=== PATIENT | female | born 1995 | race Caucasian/White ===

== ENCOUNTER 2020-01-02 12:49 | Observation (INO) | payer BC ==
[2020-01-02 13:19] LABS: Appearance CLOUDY (CLEAR); Bacteria MANY /HPF (NEGATIVE); Bilirubin NEGATIVE (NEGATIVE); Blood NEGATIVE Ery/ul (0-5); Epithelial Cells PACKED /HPF (FEW); Glucose NEGATIVE (NEGATIVE); Ketones NEGATIVE (NEGATIVE); Leukocyte Esterase LARGE (NEGATIVE); Mucus SLIGHT /HPF (NEGATIVE); Nitrite NEGATIVE (NEGATIVE); Protein,Urine Dip 30 (Negative); Specific Gravity 1.016 (1.005-1.025); Urobilinogen 2 mg/dL (0-1)
[2020-01-02] MEDS ORDERED: Lactated Ringers 1,000 ML IV ONE (14:21)
[2020-01-02] MEDS ORDERED: ROCEPHIN 1 Gm-D5w 50 ml Bag** 1 G/50 ML IVPB IV SCH (14:30)
[2020-01-02 14:41] LABS: Absolute Neutrophil Ct (ANC) 3.65 (1.4-6.9); BASOPHIL % 0.4 % (0.0-0.4); Basophil (Absolute #) 0.02 (0-0.4); Eosinophil % 0.9 % (0.00-5.0); Eosinophil (Absolute #) 0.05 (0-0.5); Hematocrit 33.9 % (35-47); Hemoglobin 10.8 gm/dl (12.0-16.0); Lymphocyte (Absolute #) 1.43 (1.0-4.6); Lymphocytes % 26.1 % (24.0-44.0); Mean Cell Volume 89.9 fl (78-100); Mean Corpuscular Hemoglobin 28.6 pg (26-32); Mean Corpuscular Hgb Concent. 31.9 g/dl (32-36); Mean Platelet Volume 12.3 fl (7.5-11.0); Monocyte (Absolute #) 0.33 (0.0-1.3); Neutrophil % 66.6 % (36.0-66.0); Platelet Count 186 K/mm3 (150-450); Red Blood Count 3.77 M/mm3 (4.1-5.4); Red Cell Distribution Width 15.3 % (11.5-14.0); White Blood Count 5.5 K/mm3 (4.0-10.5)
[2020-01-02 15:03] LABS: ALBUMIN 3.7 g/dL (3.5-5.0); ALKALINE PHOSPHATASE 169 U/L (38-126); ANION GAP 10.6 MEQ/L (5-15); BLOOD UREA NITROGEN 5 mg/dL (7-17); CHLORIDE 105 mmol/L (98-107); Calcium 9.6 mg/dL (8.4-10.2); Carbon Dioxide 23 mmol/L (22-30); Creatinine 1 0.54 mg/dL (0.52-1.04); EST GLOMERULAR FILTRATION RATE > 60.0 ML/MIN; Glucose 87 mg/dL (74-106); Potassium 3.8 mmol/L (3.5-5.1); SGOT/AST 19 U/L (14-36); SGPT/ALT 9 U/L (0-35); SODIUM 135 mmol/L (137-145); Total Protein 6.9 g/dL (6.3-8.2); Uric Acid 4.1 mg/dL (2.6-6.0)
[2020-01-02] MEDS ORDERED: Lactated Ringers 1,000 ML IV SCH (16:30)
[2020-01-02] MEDS ORDERED: Celestone Soluspan 6MG/ML IM ONE (18:38)
[2020-01-02] MEDS ORDERED: Celestone Soluspan 6MG/ML ONE (18:47)
[2020-01-02 21:41] VITALS: BP 102/55; PULSE 73; O2SAT 99
== END 2020-01-02 20:40 | disposition home or self-care (01) ==
LOC: OB 12:49
PROVIDERS: ADMIT Family Medicine; ATTEND Family Medicine
DX: Z34.83 Encounter for supervision of other normal pregnancy, third trimester (principal)
CPT/HCPCS: 36415; 80053; 81001; 84550; 85025; 87086; 90384; G0378; J0696; J0702

== ENCOUNTER 2020-01-07 00:34 | Observation (INO) | payer BC ==
[2020-01-07 01:13] LABS: Amourphous Crystal FEW /HPF (NEGATIVE); Appearance CLOUDY (CLEAR); Bacteria MODERATE /HPF (NEGATIVE); Bilirubin NEGATIVE (NEGATIVE); Blood NEGATIVE Ery/ul (0-5); Epithelial Cells FEW /HPF (FEW); Glucose NEGATIVE (NEGATIVE); Ketones NEGATIVE (NEGATIVE); Leukocyte Esterase SMALL (NEGATIVE); Mucus SLIGHT /HPF (NEGATIVE); Nitrite NEGATIVE (NEGATIVE); Protein,Urine Dip NEGATIVE (Negative); Specific Gravity 1.015 (1.005-1.025); Urobilinogen NEGATIVE mg/dL (0-1); WBC 0-2 /HPF (0-5)
[2020-01-07] MEDS ORDERED: TYLENOL 325 MG PO PRN (01:27)
[2020-01-07] MEDS ORDERED: TYLENOL 325 MG ONE (01:31)
[2020-01-07 03:42] VITALS: BP 99/62; PULSE 80
== END 2020-01-07 02:55 | disposition home or self-care (01) ==
LOC: OB 00:34
PROVIDERS: ADMIT Family Medicine; ATTEND Family Medicine
DX: Z34.83 Encounter for supervision of other normal pregnancy, third trimester (principal); Z3A.36 36 weeks gestation of pregnancy
CPT/HCPCS: 81001; 87086; G0378; A9270-GY

== ENCOUNTER 2020-01-10 13:01 | Inpatient (IN) | payer BC ==
[2020-01-10 20:40] LABS: Appearance CLEAR (CLEAR); Bacteria RARE /HPF (NEGATIVE); Bilirubin NEGATIVE (NEGATIVE); Blood NEGATIVE Ery/ul (0-5); Epithelial Cells RARE /HPF (FEW); Glucose NEGATIVE (NEGATIVE); Ketones NEGATIVE (NEGATIVE); Leukocyte Esterase NEGATIVE (NEGATIVE); Mucus SLIGHT /HPF (NEGATIVE); Nitrite NEGATIVE (NEGATIVE); Protein,Urine Dip NEGATIVE (Negative); Specific Gravity 1.009 (1.005-1.025); Urobilinogen NEGATIVE mg/dL (0-1); WBC 0-2 /HPF (0-5)
[2020-01-10 20:52] LABS: RBC NONE SEEN /HPF (0-2)
[2020-01-10 20:55] LABS: Amphetamine,Urine NEGATIVE (NEGATIVE); Barbiturate,Urine NEGATIVE (NEGATIVE); Benzodiazepine,Urine NEGATIVE (NEGATIVE); Cocaine,Urine NEGATIVE (NEGATIVE); Methadone,Urine NEGATIVE (NEGATIVE); Opiate,Urine NEGATIVE (NEGATIVE); PCP,Urine NEGATIVE (NEGATIVE); THC,Urine NEGATIVE (NEGATIVE)
[2020-01-10] MEDS ORDERED: BRETHINE 1 MG/ML SQ PRN (21:04)
[2020-01-10] MEDS ORDERED: Cervidil 10 MG VAG SCH (22:00)
[2020-01-10] MEDS ORDERED: Zofran 4 MG/2 ML VIAL IV PRN (22:01)
[2020-01-10 22:29] LABS: Absolute Neutrophil Ct (ANC) 4.05 (1.4-6.9); BASOPHIL % 0.2 % (0.0-0.4); Basophil (Absolute #) 0.01 (0-0.4); Eosinophil % 2.6 % (0.00-5.0); Eosinophil (Absolute #) 0.17 (0-0.5); Hemoglobin 11.3 gm/dl (12.0-16.0); Lymphocyte (Absolute #) 1.81 (1.0-4.6); Lymphocytes % 27.9 % (24.0-44.0); Mean Cell Volume 88.6 fl (78-100); Mean Corpuscular Hemoglobin 28.6 pg (26-32); Mean Corpuscular Hgb Concent. 32.3 g/dl (32-36); Mean Platelet Volume 12.5 fl (7.5-11.0); Monocyte (Absolute #) 0.44 (0.0-1.3); Monocytes % 6.8 % (0.0-12.0); Neutrophil % 62.5 % (36.0-66.0); Platelet Count 183 K/mm3 (150-450); Red Blood Count 3.95 M/mm3 (4.1-5.4); Red Cell Distribution Width 15.5 % (11.5-14.0); White Blood Count 6.5 K/mm3 (4.0-10.5)
[2020-01-11] MEDS ORDERED: PITOCIN 30 UNITS/ LR 500 ML 30 UNITS/500 ML IV.SOLN. IV SCH (06:00)
[2020-01-11] MEDS ORDERED: Lactated Ringers 1,000 ML IV ONE (10:22)
[2020-01-11] MEDS ORDERED: OB EPIDURAL NAROPIN/SUFENTANIL IN NACL EPIDURAL PRN (10:22)
[2020-01-11] MEDS: Lactated Ringers 1,000 ML IV SCH ×3 (10:55→21:44)
[2020-01-11] MEDS ORDERED: XYLOCAINE 1% HCL 20 ML MDV IJ PRN (16:59)
[2020-01-11] MEDS ORDERED: Hemabate IM ONE (23:58)
[2020-01-12] MEDS ORDERED: TRANEXAMIC ACID 1000 MG/10 ML ONE (00:04)
[2020-01-12] MEDS ORDERED: Hemabate IM ONE (00:04)
[2020-01-12] MEDS ORDERED: Dulcolax 10 MG SUPP PR PRN (02:04)
[2020-01-12] MEDS ORDERED: LANSINOH 40 GM TOP PRN (02:04)
[2020-01-12] MEDS ORDERED: Dermoplast Spray TP PRN (02:04)
[2020-01-12] MEDS ORDERED: CORTISONE 1% CREAM TP PRN (02:04)
[2020-01-12] MEDS ORDERED: Mylicon 80MG PO PRN (02:04)
[2020-01-12] MEDS ORDERED: TYLENOL EXTRA STRENGTH 500 MG PO PRN (02:04)
[2020-01-12] MEDS ORDERED: Anucort-HC SUPPOSITORY PR PRN (02:04)
[2020-01-12] MEDS ORDERED: NORCO 5/325 MG PO PRN (02:04)
[2020-01-12] MEDS: MOTRIN 400 MG PO PRN ×3 (02:31→17:53)
[2020-01-12] MEDS: TYLENOL EXTRA STRENGTH 500 MG PO PRN ×2 (02:32→21:55)
[2020-01-12] MEDS: TUCKS TP PRN (02:45)
[2020-01-12 05:29] LABS: Absolute Neutrophil Ct (ANC) 11.75 (1.4-6.9); BASOPHIL % 0.1 % (0.0-0.4); Basophil (Absolute #) 0.01 (0-0.4); Eosinophil % 0.2 % (0.00-5.0); Eosinophil (Absolute #) 0.02 (0-0.5); Hematocrit 30.2 % (35-47); Hemoglobin 9.7 gm/dl (12.0-16.0); Lymphocyte (Absolute #) 0.78 (1.0-4.6); Lymphocytes % 5.9 % (24.0-44.0); Mean Cell Volume 88.6 fl (78-100); Mean Corpuscular Hemoglobin 28.4 pg (26-32); Mean Corpuscular Hgb Concent. 32.1 g/dl (32-36); Mean Platelet Volume 11.7 fl (7.5-11.0); Monocyte (Absolute #) 0.74 (0.0-1.3); Monocytes % 5.6 % (0.0-12.0); Neutrophil % 88.2 % (36.0-66.0); Platelet Count 173 K/mm3 (150-450); Red Blood Count 3.41 M/mm3 (4.1-5.4); Red Cell Distribution Width 15.5 % (11.5-14.0); White Blood Count 13.3 K/mm3 (4.0-10.5)
[2020-01-12] MEDS: Colace 100 MG PO SCH ×2 (09:29→21:55)
[2020-01-12] MEDS: FERREX 150 PO SCH (09:29)
--- NOTE | 2020-01-13 07:01 | PCM.DS ---
Discharge Summary Date of Admission: 01/11/20 13:01 Admitting Physician: GLORY LAUREANO Consults: Consults on Case 01/12/20 02:04 Notify Physician ROUTINE Primary Care Provider: GLORY LAUREANO Allergies Allergies No Known Drug Allergies Allergy (Verified 01/10/20 22:16) Hospital Summary - Hospital Course Hospital Course: Pt was admitted as 24 yo at 37w 1d for IOL due to pre-eclampsia. Pt had MILTON and edema, with proteinuria, and some mildly elevated BP. Her platelets were noted by Dr. Hawkins to be decreasing, so we discussed and I contacted pt to come in for IOL. She had cervadil induction, followed by pitocin. She delivered viable 7lb 2 oz male over 2nd degree vaginal laceration (see delivery note for full details). She did have some PP hemorrhage but did not require transfusion and bleeding has been decreased since delivery. Baby is bottle feeding. Pt is denying any pain or dizziness. Would like to be discharged home tonight with baby. Will f/u with me in 1 week. - Vitals & Intake/Output Vital Signs: Vital Signs Temperature 98.7 F 01/12/20 23:00 Pulse Rate 78 01/13/20 03:00 Respiratory Rate 18 01/13/20 03:00 Blood Pressure 98/64 01/13/20 03:00 O2 Sat by Pulse Oximetry 99 01/12/20 19:00 Intake & Output: Intake & Output 01/10/20 01/11/20 01/12/20 01/13/20 11:59 11:59 11:59 11:59 Intake Total 520 2650 Output Total 2100 Balance 520 550 Weight 73.709 kg - Lab Result Diagrams: 01/12/20 04:20 - Procedures and Test Procedures and Tests throughout Hospitalization: Therapy Orders & Screens 01/12/20 03:33 Standby STAT Comment: Diagnosis: ob check, possible induction Discharge Exam General Appearance: no apparent distress, alert Neurologic Exam: oriented x 3, cooperative Eye Exam: eyes nml inspection Ears, Nose, Throat Exam: moist mucous membranes Neck Exam: normal inspection Respiratory Exam: normal breath sounds, lungs clear, No crackles/rales, No rhonchi, No wheezing Cardiovascular Exam: regular rate/rhythm, normal heart sounds, No murmur Gastrointestinal/Abdomen Exam: soft, normal bowel sounds, other (fundus firm under umbilicus) Back Exam: normal inspection, No rash Extremity Exam: normal inspection, No pedal edema, No swelling Skin Exam: normal color, warm, dry, No rash Final Diagnosis/Problem List - Final Discharge Diagnosis/Problem (1) Spontaneous vaginal delivery Current Visit: Yes Status: Acute Assessment & Plan: PPD #2, doing great. Home tonight. Code(s): O80 - ENCOUNTER FOR FULL-TERM UNCOMPLICATED DELIVERY (2) Pre-eclampsia Current Visit: Yes Status: Acute Assessment & Plan: Her BP have been great here. Code(s): O14.90 - UNSPECIFIED PRE-ECLAMPSIA, UNSPECIFIED TRIMESTER (3) Anemia Current Visit: Yes Status: Acute Assessment & Plan: Home on iron. Code(s): D64.9 - ANEMIA, UNSPECIFIED - Discharge Disposition: Home, Self-Care Condition: Good Prescriptions: New Ibuprofen 800 mg PO TID PRN #35 tablet PRN Reason: Pain Continue Ferrous Sulfate 325 mg PO DAILY Vits W-Ca,Fe,FA(<1Mg) [] 1 tab PO DAILY Follow up with: GLORY LAUREANO [Primary Care Provider] - 1 Week
[2020-01-13] MEDS: MOTRIN 400 MG PO PRN ×2 (07:24→16:49)
[2020-01-13] MEDS: FERREX 150 PO SCH (10:06)
[2020-01-13] MEDS: Colace 100 MG PO SCH (10:06)
[2020-01-13] MEDS: TUCKS TP PRN (12:16)
[2020-01-13 20:27] VITALS: BP 106/55; PULSE 82; O2SAT 82
== END 2020-01-13 21:40 | disposition home or self-care (01) | DRG 807 ==
LOC: OB 13:01 → OBSVTOIN 01-11 13:01
PROVIDERS: ADMIT Family Medicine; ATTEND Family Medicine
PROC: 10E0XZZ Delivery of Products of Conception, External Approach (ICD-10-PCS; principal; 2020-01-12)
DX: O14.94 Unspecified pre-eclampsia, complicating childbirth (principal); Z37.0 Single live birth; O71.4 Obstetric high vaginal laceration alone; Z3A.37 37 weeks gestation of pregnancy
CPT/HCPCS: 36415; 80307; 81001; 85025; 87340; 94799; 96372; G0378; J2590; J2795; A9270-GY